=== PATIENT | female | born 1975 | race Caucasian/White ===

== ENCOUNTER 2017-11-18 04:55 | Day surgery (SDC) | payer OTHER ==
[2017-11-18] MEDS ORDERED: PROPOFOL 20 ML ONE ×2 (09:24→11:45)
[2017-11-18] MEDS ORDERED: DEXAMETHASONE SOD PHOSPHATE 4 MG/1 ML VIAL ONE (09:25)
[2017-11-18] MEDS ORDERED: LIDOCAINE HCL/PF 2% SDV 5ML VIAL ONE (09:25)
[2017-11-18 09:38] VITALS: BMI 26.7
[2017-11-18] MEDS ORDERED: oxyCODONE HCL 5 MG TABLET PO PRN ×2 (10:41)
[2017-11-18] MEDS ORDERED: ONDANSETRON 4 MG/2 ML VIAL IVPUSH PRN (10:41)
[2017-11-18] MEDS ORDERED: LACTATED RINGERS SOLUTION 1,000 ML IV SCH (10:45)
[2017-11-18] MEDS ORDERED: MIDAZOLAM HCL 2 MG/2 ML SINGLE DOSE VIAL ONE (10:50)
[2017-11-18] MEDS ORDERED: IBUPROFEN 400 MG TABLET (FP) PO PRN (12:30)
[2017-11-18] MEDS ORDERED: ACETAMINOPHEN 325 MG TABLET (FP) PO PRN (12:30)
--- NOTE | 2017-11-18 12:30 | HP ---
History & Physical Update - History History: No Change - Physical Physical: No Change - Assessment Assessment: No Change - Plan Plan: No Change (No change in HP)
--- NOTE | 2017-11-18 12:37 | OP ---
Operative Note - Note: Operative Date: 11/18/17 Pre-Operative Diagnosis: Submucosal myoma Operation: Hysteroscopic Myomectomy. Suction DC Findings: submucosal myomas seen Post-Operative Diagnosis: Same as Pre-op Surgeon: Jessica Stahl Anesthesia: General Estimated Blood Loss (mls): 20 Operative Report Dictated: Yes
--- NOTE | 2017-11-18 13:09 | OP ---
DATE OF OPERATION: 11/17/2017 PREOPERATIVE DIAGNOSIS: Submucosa myoma. POSTOPERATIVE DIAGNOSIS: Submucosa myoma. OPERATION: Hysteroscopic myomectomy and suction dilatation and curettage. SURGEON: Jessica Stahl MD ANESTHESIA: General. PROCEDURE: The patient was taken to the operating room and placed in the dorsal lithotomy position and prepped and draped in the usual sterile fashion. A time-out was performed in according to the hospital regulation. The cervix was then grasped with a single tooth tenaculum and suction and dilated to accommodate the operative hysteroscope. The operative hysteroscope was then inserted. Both ostia were seen and a submucosa myoma was seen. Hysteroscopic removal of myoma was done. Hysteroscopic myomectomy was performed followed by suction D&C. A myoma was seen in the anterior portion of the uterus as well as the posterior portion of the uterus near the cervical os. Hemostasis was achieved. All contents were removed and submitted to pathology. The patient tolerated the procedure well. ESTIMATED BLOOD LOSS: 20 mL. JESSICA STAHL M.D. [id number]
[2017-11-18 14:38] VITALS: TEMP 98
[2017-11-18 15:26] VITALS: BP 128/72; PULSE 75
--- NOTE | 2017-11-19 16:43 | PATH ---
Surgical Pathology Report Patient Name: BEULAH POSADAS [facility]. Rec. #: [id number] /Age/Gender: 1975 (Age: 42) / F Account: [id number] Location: [facility] Taken: 11/18/2017 Received: 11/18/2017 Reported: 11/19/2017 Physicians: Jessica Stahl M.D. Specimen(s) Received FIBROID, POLYP Clinical History Submucosal leiomyoma Final Diagnosis FIBROID, POLYP, BIOPSY: FRAGMENTS OF ENDOMETRIAL POLYP AND SMOOTH MUSCLE BUNDLES. SECRETORY ENDOMETRIUM FRAGMENTS. Electronically Signed Anayeli Hopkins M.D. Gross Description Received in formalin labeled "uterine fibroid, polyp," 2 g, 2.5 x 2.5 x 0.3 cm aggregate of carmona pink soft tissue fragments. The formalin is filtered and the specimen is entirely submitted in 2 cassettes. DL/11/18/2017 saudi/11/18/2017
== END 2017-11-18 15:32 | disposition home or self-care (01) ==
LOC: JASU-SURG 04:55
PROVIDERS: ATTEND Obstetrics & Gynecology
PROC: 0UJD8ZZ Inspection of Uterus and Cervix, Via Natural or Artificial Opening Endoscopic (ICD-10-PCS; 2017-11-18)
PROC: 0UB98ZZ Excision of Uterus, Via Natural or Artificial Opening Endoscopic (ICD-10-PCS; principal; 2017-11-18 10:45)
PROC: 0UDB7ZX Extraction of Endometrium, Via Natural or Artificial Opening, Diagnostic (ICD-10-PCS; 2017-11-18 10:45)
DX: D25.0 Submucous leiomyoma of uterus (principal)
CPT/HCPCS: 88305-TC; 94760